=== PATIENT | female | born 1990 | race Caucasian/White ===

== ENCOUNTER 2021-05-08 15:47 | Emergency (ER) | payer OTHER ==
[~2021-05-08] VITALS: Ht 152.4 cm; Wt 59.9 kg
[2021-05-08] MEDS ORDERED: PRISTIQ50 M1 PO (15:58)
[2021-05-08] MEDS ORDERED: ZESTRIL10 MG PO (15:58)
[2021-05-08] MEDS ORDERED: HYDROXYZINE HCL10 M2 PO (15:59)
[2021-05-08 16:49] LABS: ABSOLUTE BASOPHILS 0.1 thou/uL (0.0-0.2); ABSOLUTE EOSINOPHILS 0.2 thou/uL (0.0-0.7); ABSOLUTE LYMPHOCYTES 2.6 thou/uL (0.8-5.3); ABSOLUTE MONOCYTES 0.6 thou/uL (0.0-1.2); ABSOLUTE NEUTROPHILS 7.9 thou/uL (1.6-8.1); BASOPHILS 0.5 %; EOSINOPHILS 1.4 %; HEMATOCRIT 41.6 % (37.0-47.0); HEMOGLOBIN 14.2 gm/dL (12.0-15.0); LYMPHOCYTES 22.9 %; MCH 29.6 pg (26.0-34.0); MCHC 34.2 g/dL (28.0-37.0); MCV 86.6 fL (80.0-100.0); MONOCYTES 5.3 %; NUCLEATED RBCS 0 /100WBC; PLATELET COUNT* 311 thou/uL (150-400); POLYS 69.9 %; RBC 4.81 mil/uL (4.20-5.00); RDW-CV 13.3 % (10.5-14.5); WBC 11.3 thou/uL (4.0-11.0)
[2021-05-08 16:57] LABS: CALCIUM 8.6 mg/dL (8.5-10.1); CREATININE 0.7 mg/dL (0.6-1.3); POTASSIUM 3.7 mmol/L (3.5-5.1)
[2021-05-08 17:08] LABS: MAGNESIUM 2.1 mg/dL (1.8-2.4); TOTAL BILIRUBIN 0.8 mg/dL (<0.1-1.0); TOTAL PROTEIN 8.2 g/dL (6.4-8.2)
[2021-05-08 17:46] LABS: URINE BILIRUBIN NEGATIVE (Negative); URINE BLOOD NEGATIVE (Negative); URINE CLARITY CLEAR; URINE COLOR YELLOW; URINE GLUCOSE-RANDOM NEGATIVE (Negative); URINE KETONES NEGATIVE (Negative); URINE LEUKOCYTES NEGATIVE (Negative); URINE NITRITE NEGATIVE (Negative); URINE PROTEIN NEGATIVE (Negative); URINE UROBILINOGEN 0.2 E.U./dl (0.2-1.0)
[2021-05-08] MEDS ORDERED: HYDRALAZINE 10M10 MG PO (19:13)
[2021-05-08 19:27] VITALS: BP 116/88
--- NOTE | 2021-05-09 11:49 | EKG ---
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
== END 2021-05-08 19:27 | disposition home or self-care (01) ==
LOC: M.ERS 15:47
PROVIDERS: Physician Assistant
DX: I10 Essential (primary) hypertension (principal); R42 Dizziness and giddiness; R68.84 Jaw pain; J45.909 Unspecified asthma, uncomplicated